=== PATIENT | female | born 1995 ===

== ENCOUNTER 2020-08-13 10:40 | Emergency (ER) | payer OTHER, SELFPAY ==
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
[2020-08-13 10:44] VITALS: BP 145/91; PULSE 75; RESP 16; TEMP 36.9; BMI 31.4
--- NOTE | 2020-08-13 10:45 | CT_ITS ---
EXAMINATION: CT ABDOMEN AND PELVIS WITHOUT CONTRAST CLINICAL INFORMATION: Left flank pain COMPARISON: Report outside CT abdomen and pelvis with contrast 09/15/2016 (report only, [facility]). TECHNIQUE: Multidetector volumetric imaging was performed from the superior aspect of the liver through the pubic symphysis. Sagittal and coronal reformatted images were obtained on the technologist's workstation. This CT examination was performed using dose optimization techniques as appropriate, variously including the following: *Automated exposure control *Adjustment of mA and/or kV according to patient size (this includes techniques or standardized protocols for targeted exams where dose is matched to indication/reason for exam; i.e. extremities or head) *Use of iterative reconstruction technique DLP: 690 mGy-cm FINDINGS: LUNG BASES: The visualized lung bases are unremarkable. LIVER, GALLBLADDER, AND BILIARY TREE: The liver is normal in size, shape, and attenuation. No focal hepatic lesion or biliary ductal dilatation is present. The gallbladder is unremarkable with no evidence of radiopaque gallstones, gallbladder wall thickening, or obvious pericholecystic inflammatory changes. PANCREAS: Unremarkable. SPLEEN: Unremarkable. ADRENAL GLANDS: Unremarkable. KIDNEYS AND URETERS: The kidneys are normal in size, shape, and attenuation. No hydronephrosis, hydroureter, or calculi seen. No perinephric stranding. BLADDER: Unremarkable. GASTROINTESTINAL TRACT: There is no bowel obstruction or focal inflammatory changes in the bowel or mesentery. There is some high attenuation content in the appendix, otherwise normal in caliber and without wall thickening or periappendiceal inflammatory changes. There is no ascites or fluid collection. ABDOMINAL WALL: Small fat-containing umbilical hernia under 3 cm. LYMPH NODES: Normal. VASCULAR: Incidental circumaortic left renal vein. PELVIC VISCERA: Unremarkable. OSSEOUS STRUCTURES: Unremarkable. CT/CT abdomen pelvis wo con IMPRESSION: 1. No inflammatory changes in abdomen or pelvis. 2. No hydronephrosis, calculi, or perinephric stranding. 3. Small fat-containing umbilical hernia under 3 cm.
[2020-08-13] MEDS: 0.9 % Sodium Chloride 1,000 ML 999 ML IVCONT (11:04)
[2020-08-13] MEDS: ondansetron HCL 4 MG/2 ML VIAL IVPUSH (11:05)
[2020-08-13] MEDS: Morphine Sulfate 4 MG/ML CARTRIDGE IVPUSH (11:05)
[2020-08-13 11:11] LABS: MANUAL DIFF FLAG NO
[2020-08-13 11:12] LABS: Basophils Percent Auto 0.3 % (0-2); Eosinophils Absolute Auto 0.2 X10*3/uL (0.0-0.4); Eosinophils Percent Auto 2.4 % (0-4); Hematocrit 38.9 % (37-47); Hemoglobin 12.3 g/dl (12.0-16.0); Imm Gran Abs Auto 0.03 X10*3/uL (0.00-0.03); Imm Gran Pct Auto 0.3 % (0.0-0.4); Lymphocytes Absolute Auto 2.3 X10*3/uL (1.2-4.9); Lymphocytes Percent Auto 24.7 % (20-40); Mean Corpuscular HGB Conc 31.6 g/dl (31.0-35.0); Mean Corpuscular Hemoglobin 27.8 pg (27.0-33.0); Mean Platelet Volume 11.1 fL (9.4-12.3); Monocytes Absolute Auto 0.4 X10*3/uL (0.1-1.2); Monocytes Percent Auto 4.5 % (2-11); Neutrophils Absolute Auto 6.2 X10*3/uL (2.0-8.3); Neutrophils Percent Auto 67.8 % (45-73); Platelet Count 225 X10*3/uL (160-400); Red Blood Count 4.42 X10*6/uL (4.20-5.50); Red Cell Distribution Width 13.1 % (11.0-16.0); White Blood Count 9.2 X10*3/uL (4.8-10.8)
[2020-08-13] MEDS: Ketorolac Tromethamine 30 MG/ML VIAL IVPUSH (11:37)
[2020-08-13 11:39] LABS: Anion Gap 13 (12-20); Blood Urea Nitrogen 10 mg/dL (9-16); Calcium 9.5 mg/dL (8.4-10.2); Carbon Dioxide 27 mmol/L (22-29); Chloride 106 mmol/L (96-108); Creatinine Clr Calc Pharmacy 123.4; Estimated Glomerular Filt Rate > 60; Glucose Random 85 mg/dL (60-115); Potassium 4.5 mmol/l (3.3-5.1); Sodium 141 mmol/L (135-145)
[2020-08-13 11:42] LABS: Alanine Aminotransferase 11 U/L (0-31); Albumin Level 4.5 g/dL (3.5-5.0); Alkaline Phosphatase 65 U/L (39-117); Aspartate Amino Transferase 15 U/L (5-31); Bilirubin Direct 0.3 mg/dL (0.0-0.5); Bilirubin Total 0.6 mg/dL (0.0-1.0); Lipase 8 U/L (8-78); Magnesium 1.6 mg/dL (1.6-2.6); Total Protein 7.5 g/dL (6.5-8.0)
[2020-08-13 11:49] LABS: HCG Quantitative < 2 mIU/mL
[2020-08-13 12:15] VITALS: BP 118/71; PULSE 57; RESP 22
[2020-08-13 12:24] LABS: Glucose Urine UA NEG (NEG); Leukocyte Esterase Urine NEG (NEG); Nitrite Urine NEG (NEG); Urine Blood 2+ (NEG); Urine Ketones NEG (NEG); Urine Protein NEG (NEG-TRACE)
[2020-08-13] MEDS: diphenhydrAMINE HCL 50 MG/ML VIAL 25 MG IVPUSH (12:27)
[2020-08-13] MEDS: Metoclopramide HCl 10 MG/2 ML VIAL IVPUSH (12:27)
[2020-08-13 12:28] LABS: Appearance Urine CLEAR; Color Urine STRAW
[2020-08-13 12:36] LABS: Squamous Epithelial Cell Urine TRACE /LPF; WBC Urine 0 /HPF (0-4)
== END 2020-08-13 15:13 | disposition home or self-care (01) ==
PROVIDERS: Emergency Provider Emergency Medicine
DX: R10.9 Unspecified abdominal pain (principal)
CPT/HCPCS: 36415; 74176; 80048; 80076; 81001; 83690; 83735; 84702; 85025; 96361; 96374; 96375; 99283; 99284; J1200; J1885; J2270; J2405; J2765

== ENCOUNTER 2020-08-20 11:02 | Emergency (ER) | payer OTHER, SELFPAY ==
[2020-08-20 12:00] VITALS: BP 134/86; PULSE 85; RESP 18; TEMP 37; O2SAT 97; BMI 29.2
[2020-08-20] MEDS: Acetaminophen 325 MG TABLET 650 MG PO (12:40)
[2020-08-20 12:54] LABS: COVID-19 Test Negative (Negative)
[2020-08-20 13:38] VITALS: BP 142/88; PULSE 82; RESP 16; TEMP 37; O2SAT 99
--- NOTE | 2020-08-20 13:42 | ED_ITS ---
HPI - URI/Sore Throat General Chief Complaint: Upper Respiratory Symptoms Stated Complaint: covid symptoms Time Seen by Provider: 08/20/20 12:10 Source: patient Mode of arrival: ambulatory Limitations: no limitations History of Present Illness HPI Narrative: Cough, body aches MD elicited complaint: cough, rhinorrhea and nasal congestion Pertinent past history: asthma Onset (ago): day(s) (3) Exacerbating factors: other (Cough ) Associated symptoms: denies other symptoms Treatments prior to arrival: none Related Data Previous Rx's Medication Instructions Recorded cyclobenzaprine 10 mg PO TID PRN #14 tab 08/13/20 famotidine [Pepcid] 20 mg PO DAILY PRN #30 tab 08/13/20 ondansetron 4 mg PO Q8H PRN #20 tab 08/13/20 albuterol sulfate 1 inh INHALATION Q4-6H PRN #1 ea 08/20/20 azithromycin [Zithromax Z-Billy] 250 mg PO DAILY 5 Days #6 tab 08/20/20 prednisone 40 mg PO DAILY 5 Days #10 tab 08/20/20 Allergies Allergy/AdvReac Type Severity Reaction Status Date / Time No Known Allergies Allergy Unverified 04/25/20 19:25 [No Known Allergies*] Review of Systems Review of Systems: Constitutional: No Weight loss, No Fever, No Chills, No Night Sweats, No Fatigue, No Malaise ENT/Mouth: No Hearing loss, No Ear Pain, No Nasal Congestion, No Sinus Pain, No Hoarseness, No sore throat, No Rhinorrhea, No Swallowing Difficulty Eyes: No Eye Pain, No Swelling, No Redness, No Foreign Body, No Discharge, No Vision Changes Cardiovascular: No Chest Pain, No SOB, No Dyspnea on Exertion, No Orthopnea, No Edema, No Palpitations Respiratory: + Cough, No Sputum, No Wheezing, No Smoke Exposure, No Dyspnea Gastrointestinal: No Nausea, No Vomiting, No Diarrhea, No Constipation, No abdominal Pain, No Hematochezia, No Melena Genitourinary: No Urinary Frequency, No Hematuria, No Urinary Incontinence, No Urgency, No Flank Pain Musculoskeletal: No joint pain, No Myalgias, No Joint Swelling Skin: No Skin Lesions, No rash Neuro: No Weakness, No Numbness, No Paresthesias, No Loss of Consciousness, No Dizziness, No Headache Psych: No Social Issues Heme/Lymph: No Bruising, No Bleeding,No Lymphadenopathy Endocrine: No Polyuria, No Polydipsia, No Temperature Intolerance Yes all other systems are reviewed and are negative [facility] Past Medical History Medical History No known health problems Social History Social History (Updated 08/13/20 @ 10:55 by Mariposa Duvall DO) Smoking Status: Current every day smoker Substance Use Type: Marijuana Advance Directives: No Advance Directives Information Provided: No Physical Exam Vital Signs: Vital Signs: Last Vital Signs Temp 98.6 F 08/20/20 13:38 Pulse 82 08/20/20 13:38 Resp 16 08/20/20 13:38 BP 142/88 H 08/20/20 13:38 Pulse Ox 99 08/20/20 13:38 Body Mass Index 29.2 Reviewed Const: General: cooperative and healthy appearing; No acute distress or intoxicated appearing Nutritional Appearance: average body habitus Orientation/consciousness: patient oriented x3 HENMT: Head: Yes normal to inspection Ears: hearing grossly normal bilate rally General nose exam: Other nasal findings present (Positive rhinorrhea) Eyes: General: appearance normal, both eyes and all related structures Visual Rodriguez: normal visual rodriguez by confrontation Neck: Neck: Yes normal visual inspection, No positive Brudzinski's sign, No positive Kernig's sign and No tender Thyroid: Thyroid normal Chest: Chest palpation & inspection: normal inspection of the chest Resp: Other: Mild dry bronchial cough Effort & Inspection: normal respiratory effort Auscultation: clear to auscultation bilaterally Cardio: Jugular venous distension: no JVD Rate: regular rate Rhythm: regular rhythm Heart sounds: S1 normal heart sound present and S2 normal heart sound present GI: Inspection: Yes normal to inspection Percussion: Yes normal to percussion Auscultation: normal bowel sounds : General: Yes no CVA tenderness Back/Spine/Pelvis: Back: no CVA tenderness Skin: General skin exam: no rashes or lesions noted Neuro: General: patient oriented x3 Extrem: General: Yes normal to inspection Course Course Course Narrative: Aware given duration of symptoms COVID test can be for early false-negative need to self isolate. Supportive care, clear precaution return follow-up instructions provided. Stable for discharge. MDM - URI/Sore Throat Lab Data Labs: Lab Results 08/20/20 Range/Units 12:17 COVID-19 ([facility]) Negative (Negative) COVID-19 Clin Com See Note Discharge Plan Discharge Clinical Impression: Upper respiratory infection Patient Disposition: Home, Self-Care Instructions: Upper Respiratory Infection (ED) Additional Instructions: Although your COVID test is negative today there is a possibility that given that you have symptoms for going on for 2 days and this could be a false negative due to early testing You need to quarantine yourself for 14 days Follow states/CDC guidelines for social distancing/isolation Take medication prescribed Return if any concerns or worsening symptoms Thank you Prescriptions: New azithromycin [Zithromax Z-Billy] 250 mg tablet 250 mg PO DAILY 5 Days Qty: 6 RF: 0 prednisone 20 mg tablet 40 mg PO DAILY 5 Days Qty: 10 RF: 0 albuterol sulfate 90 mcg/actuation aerosol powdr breath activated 1 inh inhalation Q4-6H PRN (Reason: shortness of breath or wheezing) Qty: 1 RF: 0 No Action cyclobenzaprine 10 mg tablet 10 mg PO TID PRN (Reason: muscle spasm) Qty: 14 RF: 0 famotidine [Pepcid] 20 mg tablet 20 mg PO DAILY PRN (Reason: abdominal discomfort) Qty: 30 RF: 0 ondansetron 4 mg tablet,disintegrating 4 mg PO Q8H PRN (Reason: nausea and vomiting) Qty: 20 RF: 0 Referrals: ED Physician,Generic [Emergency Provider] - 1 week (Phone visit)
== END 2020-08-20 14:23 | disposition home or self-care (01) ==
PROVIDERS: Nurse Practitioner Primary Care; Emergency Provider Emergency Medicine
DX: J06.9 Acute upper respiratory infection, unspecified (principal); R05 Cough; Z20.828 Contact with and (suspected) exposure to other viral communicable diseases; F12.90 Cannabis use, unspecified, uncomplicated; F17.200 Nicotine dependence, unspecified, uncomplicated; Z79.899 Other long term (current) drug therapy; Z71.6 Tobacco abuse counseling
CPT/HCPCS: 36415; 87635; 99283

== ENCOUNTER → 2020-10-22 11:47 | Outpatient (BNVA) | payer OTHER, SELFPAY | PROVIDERS: Visit Provider Obstetrics & Gynecology ==

== ENCOUNTER 2020-11-23 11:45 | Emergency (ER) | payer OTHER, SELFPAY ==
[2020-11-23 11:53] VITALS: BP 136/74; PULSE 87; RESP 16; TEMP 36.6; O2SAT 97; BMI 29.2
[2020-11-23 13:07] VITALS: BP 119/78; PULSE 73; RESP 18; TEMP 36.7; O2SAT 98; BMI 29.2
[2020-11-23] MEDS: Ibuprofen 600 MG TABLET PO (13:28)
[2020-11-23] MEDS: LORazepam 1 MG TABLET 2 MG PO (13:28)
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
[2020-11-23 14:43] LABS: Basophils Percent Auto 0.1 % (0-2); Eosinophils Absolute Auto 0.1 X10*3/uL (0.0-0.4); Eosinophils Percent Auto 0.9 % (0-4); Hematocrit 44.1 % (37-47); Imm Gran Abs Auto 0.02 X10*3/uL (0.00-0.03); Imm Gran Pct Auto 0.2 % (0.0-0.4); Lymphocytes Absolute Auto 2.3 X10*3/uL (1.2-4.9); MANUAL DIFF FLAG NO; Mean Corpuscular HGB Conc 31.7 g/dl (31.0-35.0); Mean Corpuscular Hemoglobin 27.6 pg (27.0-33.0); Mean Platelet Volume 10.6 fL (9.4-12.3); Monocytes Absolute Auto 0.5 X10*3/uL (0.1-1.2); Monocytes Percent Auto 5.6 % (2-11); Neutrophils Percent Auto 67.2 % (45-73); Platelet Count 262 X10*3/uL (160-400); Red Blood Count 5.07 X10*6/uL (4.20-5.50); Red Cell Distribution Width 14.2 % (11.0-16.0); White Blood Count 8.9 X10*3/uL (4.8-10.8)
[2020-11-23 14:51] LABS: Glucose Urine UA NEG (NEG); Leukocyte Esterase Urine NEG (NEG); Nitrite Urine NEG (NEG); PH 5.5 (5.0-8.0); Specific Gravity - Urine >= 1.030 (1.005-1.025); Urine Blood NEG (NEG); Urine Ketones NEG (NEG); Urine Protein 1+ MG/DL (NEG-TRACE)
[2020-11-23 14:53] LABS: Appearance Urine HAZY; Color Urine AMBER; UPreg QC Valid YES; Urine Pregnancy NEGATIVE (NEGATIVE)
[2020-11-23 14:57] LABS: COVID-19 Test Negative (Negative)
--- NOTE | 2020-11-23 15:03 | PC.NURSE ---
Report recieved. PT ambulated to pod with steady gait. Reporting headache, denies other complaints. PT to be seen by N.
[2020-11-23 15:08] LABS: Ethanol 14 mg/dL
[2020-11-23 15:11] LABS: Amphetamine Screen Urine Not Detected (Not Detect); Barbiturates, Urine Not Detected (Not Detect); Benzodiazepines Screen Urine Not Detected (Not Detect); Cannabinoid Screen Urine POSITIVE (Not Detect); Cocaine Screen Urine Not Detected (Not Detect); Magnesium 1.7 mg/dL (1.6-2.6); Opiate Screen Urine Not Detected (Not Detect); Phencyclidine Screen Urine Not Detected (Not Detect)
[2020-11-23 15:13] LABS: Alanine Aminotransferase 25 U/L (0-31); Albumin Level 4.9 g/dL (3.5-5.0); Alkaline Phosphatase 86 U/L (39-117); Anion Gap 16 (12-20); Aspartate Amino Transferase 24 U/L (5-31); Bilirubin Direct 0.3 mg/dL (0.0-0.5); Blood Urea Nitrogen 8 mg/dL (9-16); Carbon Dioxide 27 mmol/L (22-29); Chloride 104 mmol/L (96-108); Creatinine Clr Calc Pharmacy 119.6; Estimated Glomerular Filt Rate > 60; Glucose Random 77 mg/dL (60-115); Potassium 3.9 mmol/L (3.3-5.1); Sodium 143 mmol/L (135-145); Total Protein 8.3 g/dL (6.5-8.0)
--- NOTE | 2020-11-23 15:13 | PC.NURSE ---
TAM faxed and called, confirmed with Chante
[2020-11-23 15:14] LABS: RBC Urine 0 /HPF (0); Squamous Epithelial Cell Urine TRACE /LPF; WBC Urine 0 /HPF (0-4)
[2020-11-23 15:15] LABS: Amorphous Sediment Urine 4+ /LPF
--- NOTE | 2020-11-23 16:59 | PC.NURSE ---
[facility]N at bedside for eval.
[2020-11-23 17:02] VITALS: BP 117/53; PULSE 96; RESP 16; TEMP 37.1; O2SAT 97
--- NOTE | 2020-11-23 19:31 | PC.NURSE ---
Report received. PT resting quietly in bed. Calm and cooperative. PT waiting for her ride to respite.
[2020-11-23 23:18] LABS: CT PCR NOT DETECTED (Not Detect.); NG PCR NOT DETECTED (Not Detect.)
[2020-11-25 03:30] LABS: Syphilis Screen Nonreactive (Nonreactive)
[2020-11-25 03:50] LABS: HIV AB/AG Nonreactive (Nonreactive); HIV Num 1 0.06 S/CO (0.00-0.99)
== END 2020-11-23 20:30 | disposition home or self-care (01) ==
PROVIDERS: Physician Assistant Medical; Emergency Provider Emergency Medicine
DX: F32.9 Major depressive disorder, single episode, unspecified (principal); F41.9 Anxiety disorder, unspecified; F43.11 Post-traumatic stress disorder, acute; R45.851 Suicidal ideations; F10.10 Alcohol abuse, uncomplicated; Y90.0 Blood alcohol level of less than 20 mg/100 ml; F12.10 Cannabis abuse, uncomplicated; F17.210 Nicotine dependence, cigarettes, uncomplicated; Z11.3 Encounter for screening for infections with a predominantly sexual mode of transmission
CPT/HCPCS: 36415; 80048; 80076; 80307; 80320; 81001; 81025; 83735; 85025; 86780; 87389; 87491; 87591; 87635; 99285

== ENCOUNTER → 2020-11-26 10:43 | Outpatient (BNVA) | payer OTHER, SELFPAY | PROVIDERS: Visit Provider Obstetrics & Gynecology | DX: Z30.09 Encounter for other general counseling and advice on contraception (principal) | CPT/HCPCS: 99212 ==

== ENCOUNTER 2020-11-28 06:42 | Day surgery (SDC) | payer OTHER, SELFPAY ==
[2020-11-21 15:23] VITALS: BMI 29.2
[2020-11-28 07:30] VITALS: BP 114/73; PULSE 75; RESP 16; TEMP 36.5; O2SAT 97
[2020-11-28 07:35] LABS: UPreg QC Valid YES; Urine Pregnancy NEGATIVE (NEGATIVE)
--- NOTE | 2020-11-28 07:45 | P.CONAN_ITS ---
[facility] Active Problems Active Problems: All Active Problems (Updated 11/24/20 @ 00:01 by Bertha Mcclelland) Pseudoseizures (Acute) History of depression (Acute) History of panic attacks (Acute) History of anxiety (Acute) Asthma (Acute) Past Medical History Medical History Asthma History of anxiety History of panic attacks History of depression Pseudoseizures Surgical History Surgical History Hx of tonsillectomy Social History Social History Are you a primary career services coordinator to a significant other at home: No Do you presently have visiting nurse or other home services: No Alcohol intake: current Alcohol intake frequency: a few times a month Smoking Status: Never smoker Cigarettes Per Day: 10 Years Smoked: 14 Smoked in Last 30 Days: Yes Use of substances other than those prescribed or required for medical reasons: Yes Substance Use Type: Marijuana Substance Use Frequency: Daily Have you been hit, kicked, punched, or otherwise hurt by someone within the past year? If so, by whom?: No Advance Directives Information Provided: No Recently lost weight without trying: No Gender identity: female Meds Allergies Allergy/AdvReac Type Severity Reaction Status Date / Time No Known Allergies Allergy Verified 11/26/20 11:26 [No Known Allergies*] Active Medications: Current Medications Generic Name Dose Route Start Last Admin Trade Name Freq PRN Reason Stop Dose Admin Lactated Ringer's 1,000 mls @ 20 mls/hr 11/27/20 14:30 Lr IVCONT .Q24H MIGUELINA Exam Exam Date and Time: November 28, 2020 0745 Height,Weight and Vital Signs: Height 5 ft 4 in Weight 77.111 kg Last Vital Signs Temp 97.7 F 11/28/20 07:30 Pulse 75 11/28/20 07:30 Resp 16 11/28/20 07:30 BP 114/73 11/28/20 07:30 Pulse Ox 97 11/28/20 07:30 Pertinent Lab Results Pertinent Lab Results: Laboratory Tests 11/28/20 07:17 Urine Test NEGATIVE Airway Mallampati Class: II TM Dist: >3cm Neck ROM: Full Assessment and Plan Assessment Anesthesia Assessment: Anesthesia Plan Discussed and Chart Reviewed Final Anesthetic Review NPO: Yes ASA Class: II Final Preanesthetic Review: No Changes in Pt Med Stat, Meds/Allgs Chart Reviewed, Consent Obtained/Reviewed and Anes Risks/Benef Reviewed Patient Risk: Low Procedure Risk: Low Assessment/Block/Sedation in SS: Assess/Block/Sedation-SS Anesthetic Plan Anesthetic Plan: GA Disposition: Standard PACU
[2020-11-28] MEDS: Lactated Ringers 1,000 ML 20 ML IVCONT (07:52)
--- NOTE | 2020-11-28 08:15 | MHC.SHP ---
Pre-Procedural Eval Section A The patient is an INPATIENT: No Changes since office visit: No Cold of Flu in the past 2 weeks, No New Medical Problems, No Changes in Medication and No Patient answered all questions The History & Physical has been completed within 30 days and I have reviewed it.: Yes Section B Chief Complaint: contraception Allergies: Allergies Allergy/AdvReac Type Severity Reaction Status Date / Time No Known Allergies Allergy Verified 11/26/20 11:26 [No Known Allergies*] Plan I have reviewed the history and physical and performed a pertinent physical examination on my patient. No changes have occurred unless specified.
--- NOTE | 2020-11-28 08:15 | W.PM.OPN ---
Operative Note Operative Note Date of Service: 11/28/20 Narrative: Pre-Operative Diagnosis: Unwanted fertility Post-Operative Diagnosis: Unwanted fertility Procedures performed: laparoscopic bilateral tubal ligation Aeronautical Inspector: none Specimens: none Disposition: PACU Ms. Agustín Akbar is a 25 year old who has completed her family planning and desires a permanent form of sterilization. Surgical Risks: The patient was informed of the risks and benefits of the procedure. Risks included but were not limited to bleeding, infection, injury to the vulva, vagina, or cervix, and uterine perforation. The patient was counseled on the risk of sterilization failure being about 1% on average. The patient was informed that in the event a occurs, the risk of ectopic is increased. The patient expressed understanding of the risks involved, all questions were answered, and the patient consented to the procedure. The patient had valid sterilization consent at the time of the procedure. The patient was taken to the operating room where a time out was performed to confirm correct patient and correct procedure. General anesthesia was established. The patient was then positioned on the operating table in the dorsal lithotomy position with the legs supported using stirrups. All pressure points were padded and a Maria Luisa hugger was placed to maintain control of core body temperature. The patient was then prepped and draped in the usual sterile fashion. A red rubber catheter was inserted and the bladder emptied. A spongestick was placed in the vagina for uterine manipulation. Attention was turned to the abdomen where a 5mm vertical infraumbilical incision was made. The 5mm trocar was introduced under direct visualization using the laparoscopy within the sleeve of the trocar. After intra-abdominal placement had been confirmed, the trocar was removed leaving the sleeve in place. The camera was introduced and pneumoperitoneum was established using carbon dioxide. Inspection of the abdominal cavity showed no gross abnormalities and there was no evidence of injury to the bowel, bladder, or vasculature. Attention was turned to the pelvis. The patient was placed into Trendelenburg position. The fallopian tubes and ovaries were visualized bilaterally. There were no abnormalities noted. A small incision was made in the midline approximately 2cm above the pubic symphysis. A 5mm trocar was introduced through this incision under direct visualization with the laparoscope. The fallopian tubes were inspected bilaterally and the fimbriated ends of the fallopian tube were visualized bilaterally. The right fallopian tube and mesosalpinx were grasped and cauterized using Bipolar electrocautery with the Ligasure device. This was done with approximately three pemberton starting medially about 1cm from the cornua and working laterally. Good cautery was confirmed. Attention was then turned to the contralateral fallopian tube and mesosalpinx which was grasped about 1cm from the cornua and cauterized with three pemberton moving laterally with each cauterization. Good fulguration of both tubes was then confirmed. The pneumoperitoneum was then evacuated. The laparoscope was removed and the trocar sleeves were removed. The spongestick was removed from the vagina. The skin incisions were closed with an interrupted 3-0 Vicryl suture and Dermabond was applied. Good hemostasis was confirmed. The patient was transferred to the recovery room in stable condition. All needle, sponge, and instrument counts were noted to be correct x2 at the end of the procedure.
[2020-11-28 09:07] VITALS: BP 128/82; PULSE 93; RESP 16; TEMP 36.6; O2SAT 98
[2020-11-28 09:12] VITALS: BP 123/82; PULSE 81; RESP 18; O2SAT 97
[2020-11-28 09:17] VITALS: BP 120/73; PULSE 75; RESP 18; O2SAT 97
[2020-11-28 09:22] VITALS: BP 113/71; PULSE 74; RESP 18; TEMP 36.5; O2SAT 98
[2020-11-28] MEDS: oxyCODONE HCl Immed Release 5 MG TABLET PO (09:37)
== END 2020-11-28 10:45 | disposition home or self-care (01) ==
LOC: HO.SSS 06:42
PROVIDERS: PCP Internal Medicine; Visit Provider Obstetrics & Gynecology
PROC: (CPT 58670; principal; 2020-11-28 09:00)
DX: Z30.2 Encounter for sterilization (principal); J45.909 Unspecified asthma, uncomplicated; F12.90 Cannabis use, unspecified, uncomplicated
CPT/HCPCS: 58670; 81025; J0131; J1100; J1885; J2250; J2405; J3010

== ENCOUNTER → 2020-12-16 13:49 | Outpatient (BNVA) | payer OTHER, SELFPAY | PROVIDERS: PCP Internal Medicine; Visit Provider Obstetrics & Gynecology ==

== ENCOUNTER 2021-04-21 12:22 | Outpatient (REF) | payer OTHER, SELFPAY ==
[2021-04-21 14:13] LABS: COVID-19 Test Negative (Negative)
== END 2021-04-21 12:23 | disposition home or self-care (01) ==
LOC: HO.LAB 12:22
PROVIDERS: Visit Provider Internal Medicine
DX: Z20.822 Contact with and (suspected) exposure to COVID-19 (principal)
CPT/HCPCS: 36415; 87635; C9803

== ENCOUNTER 2023-07-24 19:51 | Emergency (ER) | payer OTHER, SELFPAY ==
[2023-07-24 20:55] VITALS: BP 142/87; PULSE 96; RESP 18; TEMP 37.7; O2SAT 99; BMI 31.8
[2023-07-24 21:19] LABS: IDNOW Serial# 58CA691E; Strep A Nucleic Acid Negative (Negative)
--- NOTE | 2023-07-24 21:44 | ED.URI ---
HPI - URI/Sore Throat General Chief Complaint: Upper Respiratory Symptoms Stated Complaint: fever x2 days, sore throat Time Seen by Provider: 07/24/23 21:36 Source: patient Mode of arrival: ambulatory Limitations: no limitations History of Present Illness HPI Narrative: Patient comes to the emergency room complaining of 4 days of sore throat, headaches, body aches and generalized malaise. Patient denies any difficulty breathing, no nausea vomiting or diarrhea. Related Data Previous Rx's Medication Instructions Recorded cyclobenzaprine 10 mg tablet 10 mg PO TID PRN muscle spasm #14 08/13/20 tabs famotidine 20 mg tablet (Pepcid) 20 mg PO DAILY PRN abdominal 08/13/20 discomfort #30 tabs ondansetron 4 mg disintegrating 4 mg PO Q8H PRN nausea and 08/13/20 tablet vomiting #20 tabs albuterol sulfate 90 mcg/actuation 1 inh inhalation Q4-6H PRN 08/20/20 breath activated powder inhaler shortness of breath or wheezing #1 ea azithromycin 250 mg tablet 250 mg PO DAILY 5 days #6 tabs 08/20/20 (Zithromax Z-Billy) prednisone 20 mg tablet 40 mg (2 x 20 mg) PO DAILY 5 days 08/20/20 #10 tabs acetaminophen 650 mg 650 mg PO Q8H #60 tabs 11/27/20 tablet,extended release ibuprofen 800 mg tablet 800 mg PO Q8H #60 tabs 11/27/20 oxycodone 5 mg capsule 5 mg PO Q6H PRN pain #20 caps 11/27/20 ibuprofen 600 mg tablet 600 mg PO TID PRN fever or pain 07/24/23 #20 tabs Allergies Allergy/AdvReac Type Severity Reaction Status Date / Time No Known Allergies Allergy Verified 07/24/23 20:58 [No Known Allergies*] Review of Systems Review of Systems: Constitutional : No Weight loss, complaining of fever, chills, fatigue and generalized malaise ENT/Mouth : No Hearing loss, No Ear Pain, nothing of nasal congestion, sore throat, no difficulty swallowing Eyes: No Eye Pain, No Swelling, No Redness, No Foreign Body, No Discharge, No Vision Changes Cardiovascular : No Chest Pain, No SOB, No Dyspnea on Exertion, No Orthopnea, No Edema, No Palpitations Respiratory : No Cough, No Sputum, No Wheezing, No Smoke Exposure, No Dyspnea Gastrointestinal : No Nausea, No Vomiting, No Diarrhea, No Constipation, No abdominal Pain, No Hematochezia, No Melena Genitourinary : no irregular bleeding, No Dysuria, No Urinary Frequency, No Hematuria, No Urinary Incontinence, No Urgency, No Flank Pain, No Urinary Flow Changes, No Hesitancy Musculoskeletal : No joint pain, No Myalgias, No Joint Swelling Skin : No Skin Lesions, No rash Neuro : No Weakness, No Numbness, No Paresthesias, No Loss of Consciousness, No Dizziness, No Headache Psych : No Anxiety/Panic, No Depression, No SI/HI/AH/VH, No Social Issues, Heme/Lymph: No Bruising, No Bleeding,No Lymphadenopathy Endocrine : No Polyuria, No Polydipsia, No Temperature Intolerance [facility] Past Medical History Medical History DVT (deep venous thrombosis) Asthma History of panic attacks History of anxiety Pseudoseizures History of depression Surgical History Hx of tonsillectomy Social History Social History Are you a primary director of healthcare systems to a significant other at home: No Do you presently have visiting nurse or other home services: No Alcohol intake: current Alcohol intake frequency: a few times a month Comment: req to [place] home Cigarettes Per Day: 10 Years Smoked: 14 Substance Use Type: Marijuana Advance Directives: No Advance Directives Information Provided: No Gender identity: Female Physical Exam Vital Signs: Vital Signs: Last Vital Signs Temp 99.8 F 07/24/23 20:55 Pulse 96 07/24/23 20:55 Resp 18 07/24/23 20:55 BP 142/87 H 07/24/23 20:55 Pulse Ox 99 07/24/23 20:55 O2 Del Method Room Air 07/24/23 20:55 BMI result Body Mass Index 31.8 Const: Other: Appearance: Alert. Oriented X3. No acute distress. Eyes: Pupils equal, round and reactive to light. ENT: Erythematous oropharynx, no exudates, no visualized abscess is Neck: Normal inspection. Neck supple. No lymph nodes noted. No crepitus CVS: Normal heart rate and rhythm. Pulses normal. Normal S1 and S2 Respiratory: No respiratory distress. Breath sounds normal. No Wheezing. No rales Abdomen: Soft and nontender. No rigidity. No distention. Skin: Skin warm and dry. Normal skin color. Normal skin turgor. Extremities: No lower extremity edema. No Lacerations. No Rash Neuro: Oriented X 3. No motor deficit. No sensory deficit. Moving all extremities. No slurred speech. CN 2 through 12 grossly intact Psych: calm, cooperative, normal affect Medical Decision Making Medical Decision Making [facility] Narrative: -patient was given p.o. Tylenol and ibuprofen 1 p.o. viscous lidocaine and Decadron for symptomatic relief -my interpretation of labs: Strep test negative, negative for COVID influenza and RSV -I discussed with the patient that if the cultures for strep come back positive, she will have a return phone call and antibiotics will be sent to her office. Differential Diagnosis Differential Diagnoses: The differential diagnosis associated with the presentation includes (COVID, influenza, RSV, strep, viral pharyngitis) Lab Data [facility] Lab Attestation statement: I reviewed the patient's lab results. Labs: Lab Results 07/24/23 Range/Units 21:01 Influenza Type A (PCR) NEGATIVE (Negative) Influenza Type B (PCR) NEGATIVE (Negative) RSV RNA Qual (PCR) NEGATIVE (Negative) SARS-CoV-2 RNA (RT-PCR) NEGATIVE (Negative) S. pyogenes GrpA DEWEY Negative (Negative) Discharge Plan Discharge Clinical Impression: Acute viral pharyngitis Patient Disposition: Home, Self-Care Instructions: Pharyngitis (ED) Additional Instructions: You tested negative for influenza, RSV, COVID and strep. If your strep test culture comes back positive for strep, you will receive a phone call and antibiotics will be sent to her pharmacy. Please follow-up with your primary care physician tomorrow. If you have any worsening or new symptoms, please return to the emergency room or call 911 Prescriptions: New ibuprofen 600 mg tablet 600 mg PO TID PRN (Reason: fever or pain) Qty: 20 0RF No Action cyclobenzaprine 10 mg tablet 10 mg PO TID PRN (Reason: muscle spasm) Qty: 14 0RF famotidine [Pepcid] 20 mg tablet 20 mg PO DAILY PRN (Reason: abdominal discomfort) Qty: 30 0RF ondansetron 4 mg tablet,disintegrating 4 mg PO Q8H PRN (Reason: nausea and vomiting) Qty: 20 0RF azithromycin [Zithromax Z-Billy] 250 mg tablet 250 mg PO DAILY 5 Days Qty: 6 0RF prednisone 20 mg tablet 40 mg PO DAILY 5 Days Qty: 10 0RF albuterol sulfate 90 mcg/actuation aerosol powdr breath activated 1 inh inhalation Q4-6H PRN (Reason: shortness of breath or wheezing) Qty: 1 0RF ibuprofen 800 mg tablet 800 mg PO Q8H Qty: 60 1RF acetaminophen 650 mg tablet extended release 650 mg PO Q8H Qty: 60 1RF oxycodone 5 mg capsule 5 mg PO Q6H PRN (Reason: pain) Qty: 20 0RF Stand Alone Forms: Work/School Release
[2023-07-24 21:50] LABS: Influenza A PCR NEGATIVE (Negative); Influenza B PCR NEGATIVE (Negative); Resp Syncy Virus RNA Qual PCR NEGATIVE (Negative); SARS COV2 PCR INHOUSE NEGATIVE (Negative)
[2023-07-24] MEDS: dexAMETHasone sod phosphate 4 MG/ML VIAL 6 MG IVPUSH (22:17)
[2023-07-24] MEDS: Ibuprofen 600 MG TABLET PO (22:18)
[2023-07-24] MEDS: Lidocaine HCl Viscous 2 % 15 ML SOLUTION MUCOUS MEM (22:18)
[2023-07-24] MEDS: Acetaminophen 325 MG TABLET 650 MG PO (22:18)
== END 2023-07-24 22:30 | disposition home or self-care (01) ==
PROVIDERS: Emergency Provider Emergency Medicine; PCP Internal Medicine
DX: J02.9 Acute pharyngitis, unspecified (principal); Z20.822 Contact with and (suspected) exposure to COVID-19; Z20.828 Contact with and (suspected) exposure to other viral communicable diseases
CPT/HCPCS: 0241U; 87651; 99283; J1100

== ENCOUNTER 2023-07-27 09:07 | Emergency (ER) | payer OTHER, SELFPAY ==
[2023-07-27 09:30] VITALS: BP 123/72; PULSE 92; RESP 20; TEMP 36.8; O2SAT 97; BMI 32.6
--- NOTE | 2023-07-27 10:07 | ED_ITS ---
HPI - General Adult General Chief complaint: Skin/Abscess/Foreign Body Stated complaint: rash Time Seen by Provider: 07/27/23 10:06 Source: patient Mode of arrival: ambulatory Limitations: no limitations History of Present Illness HPI narrative: Patient is a 27-year-old female presenting to the emergency department with complaint of sore throat for 5 days and diffuse pruritic rash which began yesterday. Patient was seen here on 07/24 and diagnosed with viral pharyngitis, prescribed ibuprofen. Patient states she has used this ibuprofen intermittently. Complains of ongoing sore throat and painful swallowing. States yesterday she developed the rash to her trunk, arms, and legs. States rash is not painful, only pruritic. Denies fevers, nausea, vomiting, diarrhea. Denies any sores to mouth or rash to palms of hands or soles of feet. MD complaint: rash, sore throat Onset (ago): day(s) Associated symptoms: rash Treatments prior to arrival: NSAID Related Data Previous Rx's Medication Instructions Recorded cyclobenzaprine 10 mg tablet 10 mg PO TID PRN muscle spasm #14 08/13/20 tabs famotidine 20 mg tablet (Pepcid) 20 mg PO DAILY PRN abdominal 08/13/20 discomfort #30 tabs ondansetron 4 mg disintegrating 4 mg PO Q8H PRN nausea and 08/13/20 tablet vomiting #20 tabs albuterol sulfate 90 mcg/actuation 1 inh inhalation Q4-6H PRN 08/20/20 breath activated powder inhaler shortness of breath or wheezing #1 ea azithromycin 250 mg tablet 250 mg PO DAILY 5 days #6 tabs 08/20/20 (Zithromax Z-Billy) prednisone 20 mg tablet 40 mg (2 x 20 mg) PO DAILY 5 days 08/20/20 #10 tabs acetaminophen 650 mg 650 mg PO Q8H #60 tabs 11/27/20 tablet,extended release ibuprofen 800 mg tablet 800 mg PO Q8H #60 tabs 11/27/20 oxycodone 5 mg capsule 5 mg PO Q6H PRN pain #20 caps 11/27/20 ibuprofen 600 mg tablet 600 mg PO TID PRN fever or pain 07/24/23 #20 tabs cetirizine 10 mg tablet 10 mg PO DAILY rash #30 tabs 07/27/23 penicillin V potassium 500 mg 500 mg PO BID 10 days #20 tabs 07/27/23 tablet Allergies Allergy/AdvReac Type Severity Reaction Status Date / Time No Known Allergies Allergy Verified 07/24/23 20:58 [No Known Allergies*] Review of Systems Review of Systems: As per HPI. Yes all other systems are reviewed and are negative Constitutional: Constitutional: Reports as per HPI [facility] Past Medical History Medical History DVT (deep venous thrombosis) Asthma History of panic attacks History of anxiety Pseudoseizures History of depression Surgical History Hx of tonsillectomy Social History Social History Are you a primary adult daycare coordinator to a significant other at home: No Do you presently have visiting nurse or other home services: No Alcohol intake: current Alcohol intake frequency: a few times a month Comment: req to pr home Cigarettes Per Day: 10 Years Smoked: 14 Substance Use Type: Marijuana Advance Directives: No Advance Directives Information Provided: No Gender identity: Female Physical Exam ED Vital Signs: Vital Signs - 24 hr 07/27/23 09:30 Temperature 98.2 F Pulse Rate 92 Respiratory Rate 20 Blood Pressure 123/72 Pulse Oximetry 97 Oxygen Delivery Method Room Air BMI result Body Mass Index 32.6 Vital signs have been reviewed and appear to be correct. Blood pressure normal. Heart rate normal. Respiratory rate normal. Temperature normal. Oxygen saturation normal. Const General: cooperative, healthy appearing and no acute distress Orientation/consciousness: oriented to person, oriented to place, oriented to time and patient oriented x3 Limitations: no limitations [facility] Head: Yes normocephalic and Yes atraumatic Ears: external ears normal General nose exam: Normal external nose present Face and sinus: Yes face symmetric Mouth: Normal oral and palatal mucosa present, oropharynx normal, moist mucous membranes and no trismus Throat: Yes uvula midline, Yes abnormal tonsil (erythema, edema and exudate; tonsils symmetrical), No peritonsillar mass and No uvular edema Eyes Pupils: Equal, round and reactive pupils present Neck Neck: Yes normal visual inspection and Yes supple Lymphatic: no lymphadenopathy noted Resp Effort & Inspection: normal respiratory effort and able to speak in complete sentences Auscultation: clear to auscultation bilaterally Cardio Rate: regular rate Rhythm: regular rhythm Heart sounds: S1 normal heart sound present and S2 normal heart sound present GI Palpation (GI): Soft to palpation and nontender Auscultation: normoactive bowel sounds General: Yes no CVA tenderness Back/Spine/Pelvis Back: no CVA tenderness Skin General skin exam: elasticity normal and turgor normal Rashes: rashes noted (fine maculopapular erythematous blanching rash to trunk, arms, legs) maculopapular rash diffuse Neuro General: oriented to person, oriented to place, oriented to time, patient orien tobi x3, moves all extremities, no focal motor deficits and CN's II-XI intact bilaterally Cranial nerves: Yes Equal, round and reactive pupils present Cognition (Neuro): normal cognition Extrem General: Yes full ROM, Yes no pedal edema and Yes no calf tenderness Psych Mental Status: mental status grossly normal Affect: normal affect Thought process: Normal thought process present Medications Administered Discontinued Medications Generic Name Dose Route Start Last Admin Trade Name Funmilayo PRN Reason Stop Dose Admin Loratadine 10 mg 07/27/23 10:27 07/27/23 10:39 Loratadine 10 Mg Tablet PO 07/27/23 10:28 10 mg ONCE ONE Administration Medical Decision Making Medical Decision Making [facility] Narrative: Patient is a 27-year-old female presenting to the emergency department with complaint of sore throat for 5 days and diffuse pruritic rash which began yesterday. On exam patient is awake, A+Ox3, VS WNL, afebrile, normal neurological exam without focal deficits, physical exam findings as above. Given reported symptoms and physical exam findings, initial differential includes viral vs streptococcal pharyngitis, mononucleosis, scarlatiniform rash vs viral exanthem, adverse medication reaction to ibuprofen though less likely as patient states she has tolerated ibuprofen without effect previously. Do not suspect TEN/SJS, DRESS, TTP/DIC, TSS, SSSS, anaphylaxis. Strep swab negative again today. Will test for mono and update patient with any positive results. Will treat for tonsillitis with PCN VK. Advised patient to begin using cetirizine for rash, will prescribe topical hydrocortisone cream for pruritis. Instructed patient to follow-up with primary care provider. Return precautions discussed at bedside. Patient verbalized understanding of and agreement with plan. Differential Diagnosis Differential Diagnoses: The differential diagnosis associated with the presentation includes As per [facility]. Lab Data [facility] Lab Attestation statement: I reviewed the patient's lab results. As per [facility]. Labs: Lab Results 07/27/23 Range/Units 10:21 S. pyogenes GrpA DEWEY Negative (Negative) External Record Review External record reviewed: Inpatient record, Office record and Outpatient record Prescription Management I considered prescription management with: Antibiotic and Other Discharge Plan Discharge Clinical Impression: Acute tonsillitis, Rash Patient Disposition: Home, Self-Care Instructions: Acute Rash (ED), Tonsillitis (ED) Additional Instructions: You were evaluated in the emergency department today for a sore throat. Your strep swab was again negative. You are being treated for tonsillitis with antibiotics, please complete the full course as prescribed. Be sure to drink adequate fluids. You can use Tylenol and ibuprofen per package directions as needed for discomfort. You can also gargle with warm salt water several times daily. You were tested for mono, and will be contacted with any positive results. Follow-up with your primary care provider this week. Begin taking cetirizine daily for your rash. Begin by taking one tab (10mg) daily, then increase to one in the am, and one (10mg) in the pm if rash persists, then can increase to two tabs (20mg) in the am and one tab (10mg) in the pm, if rash persists can take 2 tabs (20mg) in the am and 2 tabs (20mg) in the pm, DO NOT EXCEED 40mg daily. Return to the emergency department if you develop difficulty swallowing, worsening pain, shortness of breath, are unable to swallow your saliva, or any other concerning symptoms. Prescriptions: New cetirizine 10 mg tablet 10 mg PO DAILY Qty: 30 0RF penicillin V potassium 500 mg tablet 500 mg PO BID 10 Days Qty: 20 0RF No Action cyclobenzaprine 10 mg tablet 10 mg PO TID PRN (Reason: muscle spasm) Qty: 14 0RF famotidine [Pepcid] 20 mg tablet 20 mg PO DAILY PRN (Reason: abdominal discomfort) Qty: 30 0RF ondansetron 4 mg tablet,disintegrating 4 mg PO Q8H PRN (Reason: nausea and vomiting) Qty: 20 0RF azithromycin [Zithromax Z-Billy] 250 mg tablet 250 mg PO DAILY 5 Days Qty: 6 0RF prednisone 20 mg tablet 40 mg PO DAILY 5 Days Qty: 10 0RF albuterol sulfate 90 mcg/actuation aerosol powdr breath activated 1 inh inhalation Q4-6H PRN (Reason: shortness of breath or wheezing) Qty: 1 0RF ibuprofen 800 mg tablet 800 mg PO Q8H Qty: 60 1RF acetaminophen 650 mg tablet extended release 650 mg PO Q8H Qty: 60 1RF oxycodone 5 mg capsule 5 mg PO Q6H PRN (Reason: pain) Qty: 20 0RF ibuprofen 600 mg tablet 600 mg PO TID PRN (Reason: fever or pain) Qty: 20 0RF
[2023-07-27] MEDS: Loratadine 10 MG TABLET PO (10:39)
--- NOTE | 2023-07-27 10:39 | PC.NURSE ---
pt has a muffled voice without diff handling secretions. she has a widespread rash medicated as charted awaiting test results
[2023-07-27 10:40] LABS: IDNOW Serial# 58CA691E; Strep A Nucleic Acid Negative (Negative)
[2023-07-27 12:02] LABS: Monotest Negative (Negative)
== END 2023-07-27 11:16 | disposition home or self-care (01) ==
PROVIDERS: Registered Nurse Emergency; Emergency Provider Emergency Medicine
DX: J03.90 Acute tonsillitis, unspecified (principal); R21 Rash and other nonspecific skin eruption; Z79.899 Other long term (current) drug therapy; F17.210 Nicotine dependence, cigarettes, uncomplicated; Z71.6 Tobacco abuse counseling
CPT/HCPCS: 36415; 86308; 87651; 99282; 99283

== ENCOUNTER 2024-05-18 12:12 | Emergency (ER) | payer MEDICAID, SELFPAY ==
[2024-05-18 12:15] VITALS: BP 175/85; PULSE 90; RESP 20; TEMP 36.7; O2SAT 100; BMI 30.9
--- NOTE | 2024-05-18 12:19 | ED.GENADULT ---
HPI - General Adult General Chief complaint: Neck Pain/Injury Stated complaint: Lump R side of neck Time Seen by Provider: 05/18/24 13:04 Source: patient Mode of arrival: ambulatory Limitations: no limitations History of Present Illness ED Provider: SUZI MARTIN PA-C HPI narrative: 28 year old female with pmhx significant for asthma presents to the ED today for evaluation of lump to throat x24 hours. patient reports waking up yesterday and noticed a painful lump to her right throat/ neck. Reports mild sore throat. No sick contacts. Denies difficulty breathing or controlling saliva. Denies fever, chills, jaw pain, tooth pain. UTD on all vaccinations. Related Data Previous Rx's ?Medication ?Instructions ?Recorded cyclobenzaprine 10 mg tablet 10 mg PO TID PRN muscle spasm #14 08/13/20 tabs famotidine 20 mg tablet (Pepcid) 20 mg PO DAILY PRN abdominal 08/13/20 discomfort #30 tabs ondansetron 4 mg disintegrating 4 mg PO Q8H PRN nausea and 08/13/20 tablet vomiting #20 tabs albuterol sulfate 90 mcg/actuation 1 inh inhalation Q4-6H PRN 08/20/20 breath activated powder inhaler shortness of breath or wheezing #1 ea azithromycin 250 mg tablet 250 mg PO DAILY 5 days #6 tabs 08/20/20 (Zithromax Z-Billy) prednisone 20 mg tablet 40 mg (2 x 20 mg) PO DAILY 5 days 08/20/20 #10 tabs acetaminophen 650 mg 650 mg PO Q8H #60 tabs 11/27/20 tablet,extended release ibuprofen 800 mg tablet 800 mg PO Q8H #60 tabs 11/27/20 oxycodone 5 mg capsule 5 mg PO Q6H PRN pain #20 caps 11/27/20 ibuprofen 600 mg tablet 600 mg PO TID PRN fever or pain 07/24/23 #20 tabs cetirizine 10 mg tablet 10 mg PO DAILY rash #30 tabs 07/27/23 penicillin V potassium 500 mg 500 mg PO BID 10 days #20 tabs 07/27/23 tablet benzocaine 15 mg-menthol 2.6 mg 1 maame mucous membrane Q2-4H PRN 05/18/24 lozenges (Cepacol Sore Throat sore throat #16 ea (benzocaine-menthol)) penicillin V potassium 500 mg 500 mg PO BID 10 days #20 tabs 05/18/24 tablet Allergies Allergy/AdvReac Type Severity Reaction Status Date / Time No Known Allergies Allergy Verified 05/18/24 12:16 [No Known Allergies*] Review of Systems Review of Systems: Constitutional: No fever, chills, fatigue, night sweats, weight changes ENT/Mouth: No ear pain, hearing loss, nasal congestion, sinus pain, rhinorrhea, +sore throat, +odynophagia, No dysphagia Eyes: No eye pain, swelling, redness, vision changes, discharge Cardio: No chest pain, palpitations, [place], orthopnea, peripheral edema Pulm: No SOB, cough, sputum, wheezing, dyspnea, hemoptysis GI: No nausea, vomiting, hematemesis, abdominal pain, diarrhea, constipation, hematochezia, melena : No irregular bleeding, dysuria, frequency, urgency, hesitancy, hematuria, flank pain MSK: No back pain, neck pain, joint pain, myalgias Skin: No lesions, rashes Neuro: No weakness, numbness, paresthesias, LOC, dizziness, headache All other systems reviewed and are negative. [facility] Past Medical History Attestation statement: The following information was validated with the patient. Source: old records reviewed and nursing notes reviewed Medical History DVT (deep venous thrombosis) Asthma History of panic attacks History of anxiety Pseudoseizures History of depression Surgical History Hx of tonsillectomy Social History Social History Are you a primary child care cook to a significant other at home: No Do you presently have visiting nurse or other home services: No Alcohol intake: current Alcohol intake frequency: a few times a month Comment: req to ma home Cigarettes Per Day: 10 Years Smoked: 14 Substance Use Type: Marijuana Advance Directives: No Advance Directives Information Provided: Yes Gender identity: Female Physical Exam ED Vital Signs: Vital Signs - 24 hr 05/18/24 12:15 Temperature 98.1 F Pulse Rate 90 Respiratory Rate 20 Blood Pressure 175/85 H Pulse Oximetry 100 Oxygen Delivery Method Room Air BMI result Body Mass Index 30.9 Vital signs stable, afebrile Const General: cooperative, healthy appearing, comfortable, no acute distress, alert and awake Orientation/consciousness: patient oriented x3 Limitations: no limitations HENMT Other: + posterior oropharynx erythematous, no edema, uvula is midline, no tonsilar exudates or peritonsillar masses, controlling secretions and speaking in complete sentences. no muffled voice. Head: Yes normal to inspection, Yes normocephalic and Yes atraumatic Ears: hearing grossly normal bilaterally, external ears normal, TM's normal bilaterally, EAC's normal, mastoids normal and no periauricular adenopathy General nose exam: Normal external nose present and No nasal discharge present Face and sinus: Yes normal facial exam and Yes sinuses nontender Eyes General: appearance normal, both eyes and all related structures Pupils: Equal, round and reactive pupils present Neck Other: + palpable right anterior cervical lymph node Neck: Yes normal visual inspection and Yes full ROM Resp Effort & Inspection: normal respiratory effort and able to speak in complete sentences Auscultation: clear to auscultation bilaterally Cardio Rate: regular rate Rhythm: regular rhythm GI Inspection: Yes normal to inspection Palpation (GI): Soft to palpation and nontender Skin General skin exam: no rashes or lesions noted Neuro General: patient oriented x3, gait normal and moves all extremities Cranial nerves: Yes Equal, round and reactive pupils present Extrem General: Yes normal to inspection Course Course Course Narrative: This is a rapid medical exam performed by Christina Hurtado NP: Additional HPI, ROS, PE not included below will be deferred to primary provider. Patient is a 28-year-old female presenting with swelling to right side of neck since yesterday. Denies sore throat, fevers, difficulty swallowing. Plan strep and viral swabs Reevaluation(s) Reevaluation #1: 1430 -- patient tested negative for covid, flu, rsv. she tested positive for strep throat, consistent with exam findings. no concern for [employer] or retropharyngeal abscess. will send patient home with cepacol throat lozenges and penicillin for treatment. Patient has remained stable throughout ED visit today. Discussed worrisome signs and symptoms and when to return to the ED. All questions answered at this time. Patient is agreeable with disposition and stable for discharge. Medical Decision Making Medical Decision Making [facility] Narrative: 28 year old female with pmhx significant for asthma presents to the ED today for evaluation of lump to throat x24 hours. Patient hypertensive, vitals otherwise wnl. Afebrile. She is nontoxic appearing and in NAD. On exam, posterior oropharynx erythematous, no edema, uvula is midline, no tonsilar exudates or peritonsillar masses, controlling secretions and speaking in complete sentences. no muffled voice. Palpable cervical lymph node to right anterior cervical chain. Skin W/D/I, no rashes. Differential diagnosis includes strep throat, viral syndrome. Unlikely mono, [employer], retropharyngeal abscess, dental abscess, epiglottis, acute respiratory distress, pneumonia. Plan for viral/ strep swabs and re-evaluation. Differential Diagnosis Differential Diagnoses: The differential diagnosis associated with the presentation includes as above. Admission/Observation Not indicated Lab Data [facility] Lab Attestation statement: I reviewed the patient's lab results. as above Labs: Lab Results 05/18/24 Range/Units 13:32 Influenza Type A (PCR) NEGATIVE (Negative) Influenza Type B (PCR) NEGATIVE (Negative) RSV RNA Qual (PCR) NEGATIVE (Negative) SARS-CoV-2 RNA (RT-PCR) NEGATIVE (Negative) S. pyogenes GrpA DEWEY Positive A (Negative) External Record Review External record reviewed: Inpatient record Prescription Management I considered prescription management with: Pain Medication and Antibiotic (penicillin) Social Determinants Patient?s care significantly limited by Social Determinants of Health including: Other Social Determinant of Health Critical Care Time Critical Care Time Critical Care Time: No Discharge Plan Discharge Clinical Impression: Acute streptococcal pharyngitis Patient Disposition: Home, Self-Care Instructions: Pharyngitis (ED), Strep Throat (ED) Additional Instructions: You were seen in the ED today for evaluation of sore throat. You tested positive for strep throat. You tested negative for COVID, flu, RSV. Penicillin is an antibiotic that has been sent to your pharmacy. Take this twice daily for the next 10 days to treat strep throat. Do not stop taking these antibiotics early or miss any doses as this may cause infection to return or worsen. Cepacol throat lozenges have been sent to your pharmacy to help with throat pain. You may also purchase [id number] chloraseptic spray to numb your throat. Take Tylenol and ibuprofen as needed for body aches or fevers. Make sure to change your toothbrush as this contains bacteria. Strep throat is contagious. If anyone else in your household is exhibiting symptoms, please advise them to come to the ED, urgent care, or to see their primary care provider. Follow up with your primary care provider this week. Return to the Emergency Department if you experience worsening or uncontrolled pain, tongue swelling, difficulty swallowing, change in your voice, difficulty breathing, fevers 100.4?F or greater, recurrent vomiting, development of a rash, or any other concerning symptoms. In the case of emergency, call 911.? Prescriptions: New penicillin V potassium 500 mg tablet 500 mg PO BID 10 Days Qty: 20 0RF Cepacol Sore Throat (christo-men) 15-2.6 mg lozenge 1 maame mucous membrane Q2-4H PRN (Reason: sore throat) Qty: 16 0RF No Action cyclobenzaprine 10 mg tablet 10 mg PO TID PRN (Reason: muscle spasm) Qty: 14 0RF famotidine [Pepcid] 20 mg tablet 20 mg PO DAILY PRN (Reason: abdominal discomfort) Qty: 30 0RF ondansetron 4 mg tablet,disintegrating 4 mg PO Q8H PRN (Reason: nausea and vomiting) Qty: 20 0RF azithromycin [Zithromax Z-Billy] 250 mg tablet 250 mg PO DAILY 5 Days Qty: 6 0RF prednisone 20 mg tablet 40 mg PO DAILY 5 Days Qty: 10 0RF albuterol sulfate 90 mcg/actuation aerosol powdr breath activated 1 inh inhalation Q4-6H PRN (Reason: shortness of breath or wheezing) Qty: 1 0RF ibuprofen 800 mg tablet 800 mg PO Q8H Qty: 60 1RF acetaminophen 650 mg tablet extended release 650 mg PO Q8H Qty: 60 1RF oxycodone 5 mg capsule 5 mg PO Q6H PRN (Reason: pain) Qty: 20 0RF ibuprofen 600 mg tablet 600 mg PO TID PRN (Reason: fever or pain) Qty: 20 0RF cetirizine 10 mg tablet 10 mg PO DAILY Qty: 30 0RF penicillin V potassium 500 mg tablet 500 mg PO BID 10 Days Qty: 20 0RF Stand Alone Forms: Work/School Release Print Language: Portuguese
[2024-05-18 13:48] LABS: IDNOW Serial# 08D9AD1C; Strep A Nucleic Acid Positive (Negative)
[2024-05-18 14:16] LABS: Influenza A PCR NEGATIVE (Negative); Influenza B PCR NEGATIVE (Negative); Resp Syncy Virus RNA Qual PCR NEGATIVE (Negative); SARS COV2 PCR INHOUSE NEGATIVE (Negative)
== END 2024-05-18 15:35 | disposition home or self-care (01) ==
PROVIDERS: Registered Nurse Emergency; Emergency Provider Emergency Medicine
DX: R22.1 Localized swelling, mass and lump, neck (principal); M54.2 Cervicalgia; Z03.818 Encounter for observation for suspected exposure to other biological agents ruled out
CPT/HCPCS: 0241U; 87651; 99281; 99283